=== PATIENT | female | born 1970 | race Caucasian/White ===

== ENCOUNTER 2017-01-16 15:20 | Emergency (ER) | payer OTHER ==
[~2017-01-16] VITALS: Ht 170.2 cm; Wt 106.8 kg
[2017-01-16 15:24] VITALS: BP 123/37
== END 2017-01-16 15:47 | disposition home or self-care (01) ==
LOC: ED 15:20
DX: Z76.0 Encounter for issue of repeat prescription (principal); E66.9 Obesity, unspecified

== ENCOUNTER 2017-09-07 07:28 | Day surgery (SDC) | payer OTHER ==
[~2017-09-07] VITALS: Ht 170.2 cm; Wt 102.0 kg
[2017-09-07 08:20] VITALS: BP 107/66
[2017-09-07 12:20] VITALS: BP 117/82
== END 2017-09-07 11:05 | disposition home or self-care (01) ==
LOC: GI 07:28 → OR 09:30 → GI 09:30
PROVIDERS: Internal Medicine Gastroenterology
PROC: 0DBN8ZZ Excision of Sigmoid Colon, Via Natural or Artificial Opening Endoscopic (ICD-10-PCS; principal; 2017-09-07 09:30)
DX: K62.5 Hemorrhage of anus and rectum (principal); K63.5 Polyp of colon; D12.5 Benign neoplasm of sigmoid colon; K57.30 Diverticulosis of large intestine without perforation or abscess without bleeding; K64.8 Other hemorrhoids; K59.00 Constipation, unspecified; Z87.891 Personal history of nicotine dependence; Z68.35 Body mass index [BMI] 35.0-35.9, adult
CPT/HCPCS: 45378; J1200; J1610; J2250; J2310; J3010; J3490

== ENCOUNTER 2018-06-15 21:16 | Emergency (ER) | payer OTHER ==
[~2018-06-15] VITALS: Ht 170.2 cm; Wt 106.1 kg
[2018-06-15 22:53] VITALS: BP 144/82
== END 2018-06-15 22:53 | disposition home or self-care (01) ==
LOC: ED 21:16
DX: R53.83 Other fatigue (principal); R07.0 Pain in throat; R11.0 Nausea; R05 Cough; Z88.0 Allergy status to penicillin; Z88.8 Allergy status to other drugs, medicaments and biological substances
CPT/HCPCS: Q0162